=== PATIENT | male | born 1990 ===

== ENCOUNTER 2023-11-17 10:57 | Emergency (ER) | payer OTHER ==
[~2023-11-17] VITALS: Ht 175.3 cm; Wt 70.9 kg
[2023-11-17 11:00] VITALS: BP 122/71; PULSE 60; RESP 16; TEMP 98.2
[2023-11-17] MEDS ORDERED: CLOT15CR29 TP (12:45)
== END 2023-11-17 13:09 | disposition home or self-care (01) ==
LOC: EMS 10:57
DX: A63.0 Anogenital (venereal) warts (principal); E78.00 Pure hypercholesterolemia, unspecified; F12.90 Cannabis use, unspecified, uncomplicated
CPT/HCPCS: 99282; Z7502